=== PATIENT | female | born 1980 | race Asian ===

== ENCOUNTER 2018-10-02 09:25 | Inpatient (IN) | payer BC ==
[2018-10-02] MEDS ORDERED: OXYTOCIN 30 UNITS in 0.9% NS 30 UNIT/500 ML INFUS.BAG IVPB SCH (10:15)
[2018-10-02] MEDS: ELECTROLYTE-148 SOLN 1,000 ML IV SCH ×3 (10:30→15:43)
[2018-10-02 10:33] VITALS: BMI 29.2
[2018-10-02 10:51] LABS: BASO % 0.7 % (0-2.0); EOS % 0.9 % (0-4.5); HEMATOCRIT 32.7 % (32.4-45.2); HEMOGLOBIN 10.7 GM/dL (10.7-15.3); LYMPH % 15.3 % (8-40); MCH 26.8 pg (25.7-33.7); MCHC 32.7 g/dl (32.0-36.0); MEAN PLT VOLUME 8.9 fl (7.5-11.1); MONO % 5.6 % (3.8-10.2); NEUT % 77.5 % (42.8-82.8); PLATELET COUNT 255 K/MM3 (134-434); RBC 3.98 M/mm3 (3.60-5.2); RDW 15.6 % (11.6-15.6); WHITE BLOOD COUNT 11.5 K/mm3 (4.0-10.0)
[2018-10-02] MEDS ORDERED: OXYTOCIN 30 UNITS in 0.9% NS 30 UNIT/500 ML INFUS.BAG IVPB ONE (10:57)
[2018-10-02 11:23] LABS: ANION GAP 10 MMOL/L (8-16); BLOOD UREA NITROGEN 6 mg/dL (7-18); CALCIUM 8.4 mg/dL (8.5-10.1); CHLORIDE 104 mmol/L (98-107); CO2 23 mmol/L (21-32); CREATININE 0.5 mg/dL (0.55-1.3); GLUCOSE,RANDOM 76 mg/dL (74-106); POTASSIUM 3.9 mmol/L (3.5-5.1); SODIUM 137 mmol/L (136-145)
[2018-10-02 11:29] LABS: INR 0.91 (0.83-1.09); PROTHROMBIN TIME (PATIENT) 10.7 SEC (9.7-13.0)
[2018-10-02 11:32] LABS: ACTIVATED PTT 29.1 SECONDS (25.2-36.5)
--- NOTE | 2018-10-02 12:14 | HP ---
Past Medical History - Admission History of Present Illness: 38 yo @ 39 2/7 wks by first trimester ultrasound, EDC 10/07/2018 complicated by: 1. AMA - favorable cell free DNA Reassuring testing Most recent ultrasound 10/01/2018 - EFW 3096g (6-12) 25% Patient presents for scheduled induction of labor. She was examined found to be 4 cm. + FM, no LOF, VB and irregular contractions. History Source: Patient Limitations to Obtaining History: No Limitations - Past Medical History Cardiovascular: No: HTN Pulmonary: No: Asthma Gastrointestinal: No: GERD ...: 2 ...Para: 1 ...Term: 1 ...: 0 ...Spon : 0 ...Induced : 0 ...Multiple Gestation: 0 ...LMP: 12/31/17 ... Weeks Gestation by Dates: 39.1 ...EDC by Dates: 10/08/18 Heme/Onc: No: Anemia - Past Surgical History Past Surgical History: Yes: None Hx Myomectomy: No Hx Transabdominal Cerclage: No - Smoking History Smoking history: Never smoked Have you smoked in the past 12 months: No - Alcohol/Substance Use Hx Alcohol Use: No History of Substance Use: reports: None - Social History Usual Living Arrangement: Yes: With Spouse History of Recent Travel: No Home Medications - Allergies Allergies/Adverse Reactions: Allergies Allergy/AdvReac Type Severity Reaction Status Date / Time No Known Allergies Allergy Verified 10/02/18 09:59 - Home Medications Home Medications: Ambulatory Orders Vit 93/Iron Fum/Folic [ Formula Tablet] 1 tab PO DAILY Family Disease History - Family Disease History Family History: Denies Review of Systems - Review of Systems Constitutional: reports: No Symptoms Cardiovascular: reports: No Symptoms Respiratory: reports: No Symptoms Gastrointestinal: reports: No Symptoms Genitourinary: reports: No Symptoms Neurological: reports: No Symptoms Endocrine: reports: No Symptoms Psychiatric: reports: No Symptoms Physical Exam - Maternity Vital Signs: Vital Signs Temperature 98.0 F 10/02/18 10:21 Pulse Rate 83 10/02/18 12:13 Respiratory Rate 20 10/02/18 12:13 Blood Pressure 110/63 10/02/18 12:13 O2 Sat by Pulse Oximetry (%) Constitutional: Yes: Well Nourished, No Distress, Calm Cardiovascular: Yes: Regular Rate and Rhythm Lungs: Clear to auscultation - Abdominal Exam/OB Number of Fetuses: Single Presentation: Vertex Contractions: No Category: I - Vaginal Exam/OB Dilatation (cm): 4 Effacement (%): 70 Amniotic Membrane Status: Intact Station: -3 - Physical Exam Musculoskeletal: Yes: WNL Psychiatric: Yes: Alert, Oriented - Labs Lab Results: CBC, BMP 10/02/18 10:36 10/02/18 10:36 PNL - O positive, antibody negative, RPR NR HIV neg x 2; HBs Ag neg; HCV neg; GCT 130; GBS neg; Hg Agnes AA; Inheritest neg Hemorrhage Risk Assessment - Risk Factors Medium Risk Factors: Yes: None High Risk Factors: Yes: None Risk Score: 1 Risk Level: Medium Risk Assessment/Plan 38 yo @ 39 + wks, for induction / augmentation of labor 1. Admit to L&D 2. Consents reviewed and signed 3. Routine labs collected and sent 4. Will start pitocin for augmentatoin of labor 5. GBS negative 6. Will offer pain medication upon request 7. Will proceed with expectant management
--- NOTE | 2018-10-02 13:23 | PN ---
Ante-Partal Exam - Subjective Subjective: Patient reports increased pressure Vital Signs: Vital Signs Temperature 98.0 F 10/02/18 10:21 Pulse Rate 83 10/02/18 12:13 Respiratory Rate 20 10/02/18 12:13 Blood Pressure 110/63 10/02/18 12:13 O2 Sat by Pulse Oximetry (%) Bleeding: No Headache: No Visual changes: No Right upper quadrant pain: No - Contractions Contractions: Yes Regularity: Regular Intensity: Moderate Monitor Mode: External - Exam during Labor Heart Rate: 125 Variability: Moderate Category: I Monitor Accelerations: Present Monitor Decelerations: None Exam: Vaginal Dilatation (cm): 5 Effacement (%): 70 Amniotic Membrane Status: Intact Presentation: Vertex Station: -3 - Intrapartum Hemorrhage Risk Medium Risk Factors: None High Risk Factors: None Risk Score: 0 Risk Level: Low Risk - Assessment/Plan Assessment/Plan: 38 yo induction of labor 1. Good cervical change, will continue pitocin per protocol 2. GBS neg 3. Will offer pain medication upon request 4. Will proceed with expectant management
[2018-10-02] MEDS ORDERED: FENTANYL/BUPIVACAINE/NS/PF - PCEA - 50 ML DISP.SYRIN EP ONE (14:55)
[2018-10-02] MEDS ORDERED: NALOXONE HCL 0.4 MG/ML VIAL IVPUSH PRN (15:05)
[2018-10-02] MEDS ORDERED: LIDO 2%/EPI 1:200000 PRESRVFRE (20 ML SDVIAL) ONE (15:06)
[2018-10-02] MEDS ORDERED: FENTANYL/BUPIVACAINE/NS/PF - PCEA - 50 ML DISP.SYRIN EP SCH (15:15)
--- NOTE | 2018-10-02 15:34 | PN ---
Ante-Partal Exam - Subjective Subjective: Patient s/p epidural, comfortable Vital Signs: Vital Signs Temperature 98.6 F 10/02/18 14:10 Pulse Rate 80 10/02/18 14:10 Respiratory Rate 20 10/02/18 14:10 Blood Pressure 120/74 10/02/18 14:10 O2 Sat by Pulse Oximetry (%) Bleeding: No Headache: No Visual changes: No Right upper quadrant pain: No - Contractions Contractions: Yes Regularity: Regular Intensity: Unaware Monitor Mode: External - Exam during Labor Heart Rate: 130 Variability: Moderate Category: I Monitor Accelerations: Present Monitor Decelerations: None Exam: Vaginal Dilatation (cm): 6 Effacement (%): 80 Amniotic Membrane Status: Ruptured Amniotic Fluid: Clear Presentation: Vertex Station: -2 - Intrapartum Hemorrhage Risk Medium Risk Factors: None High Risk Factors: None Risk Score: 0 Risk Level: Low Risk - Assessment/Plan Assessment/Plan: 38 yo induction of labor, active labor 1. Good cervical change, will continue pitocin per protocol 2. GBS neg 3. Pain well controlled with epidural 4. Will continue expectant management
[2018-10-02] MEDS ORDERED: OXYTOCIN 20 UNITS in 0.9% NS 20 UNIT/1,000 ML INFUS.BAG IV ONE ×2 (17:33→20:52)
[2018-10-02] MEDS: METHYLERGONOVINE MALEATE 0.2 MG/1 ML AMP IM PRN (18:45)
[2018-10-02] MEDS ORDERED: TUBERCULIN PPD 5 TU/0.1ML SYRINGE (IN PATIENT USE ONLY) ID ONE (18:59)
--- NOTE | 2018-10-02 18:59 | PN ---
Delivery - Delivery Vaginal Delivery: No Problems Type of Anesthesia: Epidural Episiotomy/Laceration: Midline, 2nd degree EBL (cc): 1,200 Delivery, Single - Stages of Labor Date 1st Stage Initiatied: 10/02/18 Time 1st Stage Initiated: 12:00 Date 2nd Stage Initiated: 10/02/18 Time 2nd Stage Initiated: 17:30 Date of Delivery: 10/02/18 Time of Delivery: 18:25 Date Placenta Delivered: 10/02/18 Time Placenta Delivered: 18:40 Placenta: Yes: Expressed - Condition of Infant Position: Left, OA - 1 Minute Total Score: 9 5 Minutes Total Score: 9 - [place] Feeding Plan Initial Plan: Exclusive throughout hospitalization Remarks - Remarks Remarks: Patient progressed to fully dilated and at 1825 via delivered a viable female infant in ROCCO position, APGARs 9,9. Weight and length unknown at this time. Head delivered spontaneously followed by shoulders and body without difficulty. Infant with spontaneous cry and placed on mother's abdomen. Nose and mouth was bulb suctioned. Cord was clamped and cut. Perineum and vagina examined, a second degree episiotomy / laceration was noted and repaired in the usual fashion. Placenta was delivered spontaneously and intact. Rectal exam revealed no sutures in rectum. Uterine atony noted, bleeding noted Methergine x1 given 20 units of pitocin in 1 L IVF was given. All counts correct x 2. Mother and stable in LDR. EBL 1200cc.
[2018-10-02] MEDS ORDERED: ACETAMINOPHEN 325 MG TABLET (FP) PO PRN (19:10)
[2018-10-02] MEDS ORDERED: BISACODYL 10 MG SUPP.RECT RC PRN (19:10)
[2018-10-02] MEDS ORDERED: IBUPROFEN 600 MG TABLET (FP) PO PRN (19:10)
[2018-10-02] MEDS ORDERED: WITCH HAZEL 50% (TUCKS) 40 PAD/JAR PAD TP PRN (19:10)
[2018-10-02] MEDS ORDERED: BENZOCAINE 28 GM HEMORRHOIDAL OINTMENT TP PRN (19:10)
[2018-10-02] MEDS ORDERED: BENZOCAINE 20% 57 GM BOTTLE TP PRN (19:10)
[2018-10-02] MEDS ORDERED: OXYTOCIN 20 UNITS in 0.9% NS 20 UNIT/1,000 ML INFUS.BAG IV SCH ×2 (19:15→21:26)
[2018-10-02] MEDS: OXYTOCIN 20 UNITS in 0.9% NS 20 UNIT/1,000 ML INFUS.BAG IV ONE (21:00)
[2018-10-03] MEDS: METHYLERGONOVINE MALEATE 0.2 MG/1 ML AMP IM PRN (04:10)
[2018-10-03] MEDS: OXYTOCIN 20 UNITS in 0.9% NS 20 UNIT/1,000 ML INFUS.BAG IV ONE (04:10)
[2018-10-03] MEDS: FERROUS SO4 325 MG TABLET (FP) PO SCH ×3 (07:37→17:21)
--- NOTE | 2018-10-03 08:18 | PN ---
Post Progress Note - Subjective Subjective: Patient without acute complaints. Reports tolerating oral intake without nausea or vomiting. Ambulating without dizziness. Denies fevers or chills. Pain well controlled with oral pain medication. without difficulty. Passing flatus. Post Day: 1 Type of Delivery: Vital Signs: Vital Signs Temperature 97.8 F 10/03/18 06:55 Pulse Rate 69 10/03/18 06:55 Respiratory Rate 20 10/03/18 06:55 Blood Pressure 122/79 10/03/18 06:55 O2 Sat by Pulse Oximetry (%) 99 10/02/18 19:45 Breast Exam: Yes: Soft Uterus: Yes: Fundus Firm Abdomen/GI: Yes: Abdomen soft, Passing flatus, Tolerating PO. No: Abdominal Distention, Tender Lochia: Yes: Serosa Extremities: Yes: Calves non-tender, Edema (trace) Perineum: Yes: Episiotomy Activity: Ambulating - Labs Labs: CBC WBC 11.5 K/mm3 (4.0-10.0) H 10/02/18 10:36 RBC 3.98 M/mm3 (3.60-5.2) 10/02/18 10:36 Hgb 10.7 GM/dL (10.7-15.3) 10/02/18 10:36 Hct 32.7 % (32.4-45.2) 10/02/18 10:36 MCV 82.0 fl (80-96) 10/02/18 10:36 MCH 26.8 pg (25.7-33.7) 10/02/18 10:36 MCHC 32.7 g/dl (32.0-36.0) 10/02/18 10:36 RDW 15.6 % (11.6-15.6) 10/02/18 10:36 Plt Count 255 K/MM3 (134-434) 10/02/18 10:36 MPV 8.9 fl (7.5-11.1) 10/02/18 10:36 Absolute Neuts (auto) 8.9 K/mm3 (1.5-8.0) H 10/02/18 10:36 Neutrophils % 77.5 % (42.8-82.8) 10/02/18 10:36 Lymphocytes % 15.3 % (8-40) 10/02/18 10:36 Monocytes % 5.6 % (3.8-10.2) 10/02/18 10:36 Eosinophils % 0.9 % (0-4.5) 10/02/18 10:36 Basophils % 0.7 % (0-2.0) 10/02/18 10:36 Nucleated RBC % 0 % (0-0) 10/02/18 10:36 Assessment/Plan 38 yo PPD # 1 s/p , complicated by uterine atony and hemorrrhage, currently afebrile, vital signs stable, doingwell 1. Continue routine care. 2. AM CBC with anemia, will continue ferrous sulfate. anemia precautions reviewed 3. Rh positive status, no rhogam indicated. 4. Encourage ambulation 5. Continue oral pain medication 6. Anticipate discharge home day #2
[2018-10-03 08:47] LABS: BASO % 0.2 % (0-2.0); EOS % 0.9 % (0-4.5); HEMATOCRIT 23.9 % (32.4-45.2); HEMOGLOBIN 7.7 GM/dL (10.7-15.3); LYMPH % 13.1 % (8-40); MCH 26.8 pg (25.7-33.7); MCHC 32.4 g/dl (32.0-36.0); MEAN CELL VOLUME 82.9 fl (80-96); MEAN PLT VOLUME 9.5 fl (7.5-11.1); NEUT % 80.8 % (42.8-82.8); PLATELET COUNT 189 K/MM3 (134-434); RBC 2.89 M/mm3 (3.60-5.2); RDW 15.4 % (11.6-15.6); WHITE BLOOD COUNT 15.7 K/mm3 (4.0-10.0)
[2018-10-03] MEDS: PRENATAL VITAMINS W/ FOLIC ACID TABLET (FP) PO SCH (11:10)
[2018-10-03] MEDS ORDERED: SENNOSIDES/DOCUSATE COMBO (SENNA PLUS) TABLET (UD) PO PRN (22:00)
--- NOTE | 2018-10-04 07:24 | PN ---
Progress Note (short form) - Note Progress Note: ppd 2 s/p , pp hemorrhage , no excess vaginal bleeding, voids ok, no dizziness CBC, BMP 10/03/18 07:30 10/02/18 10:36 Last Vital Signs Temp Pulse Resp BP Pulse Ox 98.5 F 99 H 16 91/63 99 10/03/18 21:40 10/03/18 21:40 10/03/18 21:40 10/03/18 21:40 10/02/18 19:45 abdomen soft, no distension, no cva uterus firm. non tender lochia mild no calf tenderness impression ppd 1, anemia , asymptomatic advised cbc , revaluate iron vit
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
[2018-10-04] MEDS: FERROUS SO4 325 MG TABLET (FP) PO SCH ×2 (07:58→12:00)
[2018-10-04 08:41] LABS: BASO % 0.2 % (0-2.0); HEMATOCRIT 22.5 % (32.4-45.2); HEMOGLOBIN 7.3 GM/dL (10.7-15.3); LYMPH % 15.1 % (8-40); MCHC 32.4 g/dl (32.0-36.0); MEAN CELL VOLUME 83.4 fl (80-96); MEAN PLT VOLUME 8.8 fl (7.5-11.1); MONO % 5.3 % (3.8-10.2); NEUT % 78.4 % (42.8-82.8); PLATELET COUNT 207 K/MM3 (134-434); RDW 15.7 % (11.6-15.6); WHITE BLOOD COUNT 16.9 K/mm3 (4.0-10.0)
[2018-10-04] MEDS: PRENATAL VITAMINS W/ FOLIC ACID TABLET (FP) PO SCH (09:31)
[2018-10-04 13:10] VITALS: BP 104/67; PULSE 101; TEMP 97.9
== END 2018-10-04 12:55 | disposition home or self-care (01) | DRG 806 ==
LOC: JLDR 09:25 → J3W 21:28
PROVIDERS: ADMIT Obstetrics & Gynecology; ATTEND Obstetrics & Gynecology
PROC: 10E0XZZ Delivery of Products of Conception, External Approach (ICD-10-PCS; principal; 2018-10-02)
PROC: 0KQM0ZZ Repair Perineum Muscle, Open Approach (ICD-10-PCS; 2018-10-02)
PROC: 0W8NXZZ Division of Female Perineum, External Approach (ICD-10-PCS; 2018-10-02)
PROC: 3E033VJ Introduction of Other Hormone into Peripheral Vein, Percutaneous Approach (ICD-10-PCS; 2018-10-02)
DX: O48.0 Post-term pregnancy (principal); O72.1 Other immediate postpartum hemorrhage; Z37.0 Single live birth; O69.81X0 Labor and delivery complicated by cord around neck, without compression, not applicable or unspecified; O70.1 Second degree perineal laceration during delivery; O99.013 Anemia complicating pregnancy, third trimester; D64.9 Anemia, unspecified; Z3A.40 40 weeks gestation of pregnancy
CPT/HCPCS: 36415; 59409; 80048; 85025; 85610; 85730; 86593; 86850; 86900; 86901

== ENCOUNTER 2019-08-03 19:16 | Emergency (ER) | payer BC, OTHER ==
[2019-08-03 19:22] VITALS: TEMP 98.2; BMI 30.2
[2019-08-03] MEDS ORDERED: IBUPROFEN 400 MG TABLET (FP) PO ONE (19:35)
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
[2019-08-03 19:41] VITALS: BP 153/103; PULSE 76
== END 2019-08-03 19:51 | disposition home or self-care (01) ==
LOC: JERFT 19:16
DX: R03.0 Elevated blood-pressure reading, without diagnosis of hypertension (principal); S39.012A Strain of muscle, fascia and tendon of lower back, initial encounter; S16.1XXA Strain of muscle, fascia and tendon at neck level, initial encounter; V43.62XA Car passenger injured in collision with other type car in traffic accident, initial encounter; Y92.414 Local residential or business street as the place of occurrence of the external cause; Y93.89 Activity, other specified; Y99.8 Other external cause status
CPT/HCPCS: 99281-25